=== PATIENT | female | born 1985 ===

== ENCOUNTER 2017-07-09 09:11 | Emergency (ER) | payer MEDICAID ==
[2017-07-09 09:18] VITALS: BP 126/72; TEMP 98; O2SAT 98; BMI 25.8
[2017-07-09 09:25] VITALS: RESP 18
--- NOTE | 2017-07-09 09:44 | ED PDOC ---
HPI: General Adult Time Seen by Provider: 07/09/17 09:20 Chief Complaint (Nursing): Female Genitourinary History Per: Patient Additional Complaint(s): Pt. states this morning she woke up with mild pelvic cramping and vaginal bleeding. LMP 06/22/2017. Pt. states her menstruation usually occurs monthly and lasts for 4-5 days and she uses approximately 5 pads/day. Also reports feeling slightly anxious as she is concerned about being . Denies dysuria, hematuria, hx of ectopic , weakness, hx of anemia, chest pain , SOB, palpitations, fever. Past Medical History Reviewed: Historical Data, Nursing Documentation, Vital Signs Vital Signs: Last Vital Signs Temp 98 F 07/09/17 09:23 Pulse 64 07/09/17 10:26 Resp 18 07/09/17 09:23 BP 126/72 07/09/17 09:23 Pulse Ox 98 07/09/17 10:19 - Family History Family History: States: Unknown Family Hx - Allergies Allergies/Adverse Reactions: Allergies Allergy/AdvReac Type Severity Reaction Status Date / Time No Known Allergies Allergy Verified 07/09/17 09:22 Review of Systems ROS Statement: Except As Marked, All Systems Reviewed And Found Negative Genitourinary Female: Positive for: Vaginal Bleeding Physical Exam - Physical Exam Appears: Positive for: Well, Non-toxic, No Acute Distress Skin: Positive for: Normal Color, Warm. Negative for: Rash Eye Exam: Positive for: Normal appearance. Negative for: Scleral icterus Cardiovascular/Chest: Positive for: Regular Rate, Rhythm Respiratory: Positive for: CNT, Normal Breath Sounds Gastrointestinal/Abdominal: Positive for: Normal Exam, Soft. Negative for: Tenderness, Mass Back: Positive for: Normal Inspection. Negative for: L CVA Tenderness, R CVA Tenderness Extremity: Positive for: Normal ROM Neurologic/Psych: Positive for: Alert, Oriented - Laboratory Results Result Diagrams: 07/09/17 10:17 07/09/17 10:17 Urine POC: Negative - ECG O2 Sat by Pulse Oximetry: 98 - Progress ED Course And Treament: Labs ordered. TVUS ordered. 1018 On re-evaluation, pt. resting comfortably. 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 1230 TVUS: No evidence of myometrial or endometrial abnormality. No ovarian cyst or adnexal mass. Results d/w patient and instructed to f/u with OBGYN for further evaluation. Patient agrees with care and states she will f/u with OBGYN. Disposition - Clinical Impression Clinical Impression: Abnormal uterine bleeding (AUB) - Patient ED Disposition Is Patient to be Admitted: No - Disposition [facility] Disposition: Routine/Home Disposition Time: 12:31 Condition: STABLE Additional Instructions: Follow up with OBGYN for further evaluation. Return to ED immediately if symptoms persist or worsen. Instructions: Menstruation Forms: [facility] (Citizen [place]) Print Language: TUNISIAN
[2017-07-09 10:15] LABS: SQUAMOUS EPITHIAL 2 /hpf (0-5); URINE BACTERIA RARE (<OCC); URINE BILIRUBIN NEGATIVE (NEGATIVE); URINE BLOOD LARGE (NEGATIVE); URINE CLARITY SLIGHTY-CLOUDY (Clear); URINE COLOR YELLOW (YELLOW); URINE GLUCOSE (UA) NEG (Normal); URINE LEUKOCYTE ESTERASE NEG Leu/uL (Negative); URINE NITRATE NEGATIVE (NEGATIVE); URINE PROTEIN NEGATIVE (NEGATIVE); URINE UROBILINOGEN 0.2-1.0 mg/dL (0.2-1.0)
[2017-07-09 10:26] VITALS: PULSE 64
[2017-07-09 10:39] LABS: BASO % 0.6 % (0.0-2.0); EOS # 0.1 K/uL (0.0-0.7); EOS % 2.3 % (0.0-4.0); HEMOGLOBIN 12.4 g/dL (12.0-16.0); LYMPH # 1.7 K/uL (1.0-4.3); LYMPH % 26.4 % (20.0-40.0); MEAN CELL VOLUME 79.1 fl (81.0-99.0); MEAN CORPUSCULAR HEMOGLOBIN 24.7 pg (27.0-31.0); MEAN CORPUSCULAR HGB CONC 31.3 g/dL (33.0-37.0); MEAN PLATELET VOLUME 8.2 fl (7.2-11.7); MONO # 0.8 K/uL (0.0-0.8); MONO % 12.2 % (0.0-10.0); NEUT # 3.7 K/uL (1.8-7.0); NEUT % 58.5 % (50.0-75.0); NRBC % 0.1 % (0.0-0.0); RBC 5.01 Mil/uL (3.80-5.20); RED CELL DISTRIBUTION WIDTH 14.2 % (11.5-14.5); WHITE BLOOD COUNT 6.3 K/uL (4.8-10.8)
[2017-07-09 10:44] LABS: ALB/GLOB RATIO 1.3 (1.0-2.1); ALT/SGPT 31 U/L (9-52); AST/SGOT 23 U/L (14-36); BLOOD UREA NITROGEN 11 mg/dl (7-17); CALCIUM 8.8 mg/dL (8.4-10.2); GFR AFRICAN-AMERICAN > 60; GFR NON-AFRICAN AMERICAN > 60; INR 0.9 (0.9-1.2); PARTIAL THROMBOPLASTIN TIME 29.3 Seconds (25.6-37.1); PROTHROMBIN TIME 10.2 Seconds (9.8-13.1)
--- NOTE | 2017-07-09 12:24 | US ---
HISTORY: vaginal bleeding with cramping COMPARISON: None available. TECHNIQUE: Transvaginal pelvic ultrasound was performed. FINDINGS: UTERUS: Measures 7.4 x 4.8 x 3.8 cm. Anteverted, normal in size and appearance. No fibroid or other mass lesion seen. ENDOMETRIUM: Measures 4.0 mm in diameter. Normal in appearance. CERVIX: There is a complicated nabothian cyst in the cervix. RIGHT OVARY: Measures 3.6 x 1.8 x 2.9 cm. No solid mass. Normal flow. LEFT OVARY: Measures 3.3 x 3.1 x 2.1 cm. No solid mass. Normal flow. FREE FLUID: No significant free fluid noted. OTHER FINDINGS: None. IMPRESSION: No evidence of myometrial or endometrial abnormality. No ovarian cyst or adnexal mass.
== END 2017-07-09 13:00 | disposition home or self-care (01) ==
LOC: H.ER 09:11
DX: N93.9 Abnormal uterine and vaginal bleeding, unspecified (principal)